=== PATIENT | female | born 2005 | race Caucasian/White ===

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

== ENCOUNTER 2025-04-17 23:36 | Observation (INO) ==
[2025-04-18] MEDS: SODIUM CHLORIDE 0.9% 1,000 ML IV ONE ×2 (01:00→01:18)
[2025-04-18 01:05] LABS: Hematocrit (blood only) 35.8 % (37.0-47.0); Hemoglobin 11.7 g/dl (12.0-16.0); Mean Corpuscular Hemoglobin 27.5 pg (25.0-34.0); Mean Corpuscular Volume 84.2 fL (80.0-100.0); Platelet Count 176 K/uL (130-400); RDW Standard Deviation 40.4 fL (36.4-46.3); Red Blood Count 4.25 M/uL (4.20-5.40); White Blood Count 3.52 K/ul (4.8-10.8)
[2025-04-18] MEDS: SODIUM CHLORIDE 0.9% 250 ML IV ONE (01:18)
[2025-04-18] MEDS: ACETAMINOPHEN 1,000 MG/100 ML VIAL IV STA (01:18)
[2025-04-18 01:23] LABS: Alanine Aminotransferase 13.0 U/L (7-52); Albumin Globulin Ratio 1.3 (0.9-2); Albumin Level 4.6 gm/dl (3.4-5.0); Alkaline Phosphatase 101.0 U/L (34-104); Anion Gap 9.0 (3-11); Bilirubin,Total 0.6 mg/dl (0.2-1.0); Blood Urea Nitrogen 12.0 mg/dl (6-23); Calcium 9.2 mg/dl (8.6-10.3); Carbon Dioxide 23.0 mmol/L (21-32); Chloride 103.0 mmol/L (98-107); Creatinine Clr Calc Pharmacy 124.0 ml/min; Globulin 3.5 gm/dl (2.5-4.0); Glucose 85.0 mg/dl (70-99(Fasting)); Lipase 14.0 U/L (11-82); Potassium 3.2 mmol/L (3.5-5.1); Sodium 135.0 mmol/L (136-145); Total Protein 8.1 gm/dl (6.0-8.3)
[2025-04-18] MEDS: KETOROLAC 30 MG/ML VIAL IV STA (01:44)
[2025-04-18 01:45] LABS: ALC (manual) 2.36 K/uL (1.2-3.4); ANC (manual) 1.02 K/uL (1.4-6.5); RBC Morphology Unremarkable; Reactive Lymphocytes # (manual) 0.60 K/uL; Reactive Lymphocytes % (manual) 17 %
[2025-04-18] MEDS: cefTRIAXone SODIUM 2,000 MG/50 ML BAG IV ONE (01:53)
[2025-04-18 02:04] LABS: Appearance Urine Cloudy (Clear); Bacteria Urine Automated 3+ (None Seen); Cast Urine Automated 0-2 /lpf (0-2); Glucose Urine UA Negative (Negative); WBC Urine Automated >50 /hpf (0-5)
--- NOTE | 2025-04-18 02:13 | XRay Report ---
EXAM: XR chest 1V portable CLINICAL HISTORY: Fever TECHNIQUE: A radiograph of the chest was acquired. COMPARISON: None. FINDINGS: The lungs are clear and well expanded, with no pulmonary infiltrate or pleural effusion. The cardiomediastinal silhouette is within normal limits. No acute osseous abnormality is present. IMPRESSION: 1. No acute cardiopulmonary disease. Electronically signed by Christiano Pate 04-18-2025 02:12 AM
[2025-04-18 02:35] LABS: Chlamydia pneumoniae PCR Not Detected (NotDetected); Coronavirus 229E PCR Not Detected (NotDetected); Coronavirus CoV-2 (COVID19)PCR Not Detected (NotDetected); Coronavirus HKU1 PCR Not Detected (NotDetected); Coronavirus NL63 PCR Not Detected (NotDetected); Coronavirus OC43PCR Not Detected (NotDetected); Human Metapneumovirus PCR Not Detected (NotDetected); Parainfluenza Virus 1 PCR Not Detected (NotDetected); Parainfluenza Virus 2 PCR Not Detected (NotDetected); Parainfluenza Virus 3 PCR Not Detected (NotDetected); Parainfluenza Virus 4 PCR Not Detected (NotDetected); Respiratory Syncytial VirusPCR Not Detected (NotDetected); Rhinovirus/Enterovirus PCR Not Detected (NotDetected)
--- NOTE | 2025-04-18 02:51 | Emergency Department Note ---
Impression & Plan Sepsis, Hyponatremia, Hypokalemia, Female genital lesion, High risk heterosexual behavior ED Provider Note CHIEF COMPLAINT: Perineal lesions HISTORY OF PRESENT ILLNESS: This 20-year-old female patient presents to the emergency department via private vehicle for evaluation of lesions on her perineum and labia. The patient states that she was having sex about 2 weeks ago. She thought her posterior vaginal introitus tore during sex. She states she was having some irritation and pain in that area. About a week ago, she had sex again and developed another tearing sensation. Since that time, she has been using witch rj and Dermoplast and has since developed lesions on the labia which are sort of ulcerated. She states she is having significant pain in this area. She has had cold symptoms for the past few days with congestion and runny nose. She was unaware of a fever but was having chills. She states there is discharge coming from the lesions. She denies any abdominal pain or back pain. Pain with urination except externally over the lesions. No vaginal bleeding. History provided by: Patient REVIEW OF SYSTEMS: A 10 system review of systems was performed with positives and pertinent negatives listed in the history of present illness. All other systems were reviewed and are negative. ALLERGIES: NKDA PHYSICAL EXAM: VITALS: Vitals are noted on the nurse's note and reviewed by myself. Patient was found to be tachycardic and febrile on arrival. GENERAL: This is a 40-year-old female, in no acute distress, nondiaphoretic, well-developed well-nourished. SKIN: The skin was without rashes, erythema, edema, or bruising. There is no tenting of the skin. Capillary refill less than 2 seconds. HEAD: Normocephalic atraumatic. EARS: External auditory canals clear, tympanic membranes pearly baeza without erythema or effusion bilaterally. No hemotympanum. Negative rogres sign EYES: Pupils equal round and reactive to light and accommodation. Conjunctivae without injection, sclerae without icterus. Extraocular movements intact. NOSE: Patent, turbinates without inflammation or discharge. No sinus tenderness. MOUTH: Mucous membranes moist. Tonsils are not enlarged. Pharynx without erythema or exudate. Uvula midline. Airway patent. Tongue does not deviate. NECK: Supple without nuchal rigidity. No lymphadenopathy. Cervical spine is nontender. No JVD. HEART: Regular rate and rhythm without murmurs gallops or rubs. LUNGS: Clear to auscultation bilaterally without wheezes, rales or rhonchi. No retractions or accessory muscle use. ABDOMEN: Positive bowel sounds x 4. Soft, nontender, without masses or organomegaly. Lindsay sign negative. No guarding or rebound tenderness. : Exam completed with Sonal Lopez RN at bedside as bar staff. External examination shows vesicular lesions on erythematous base on the labia majora and perineum. There is no active discharge from the lesions. Lesions are extremely tender to palpation. Pt. having difficulty tolerating external examination. Did elect to hold off on on internal exam at this time. MUSCULOSKELETAL: No muscle atrophy, erythema, or edema noted. Full range of motion without joint tenderness in all extremities. No tenderness to palpation. Normal gait. Strength 5/5 throughout. NEURO: Patient was alert and oriented to person place and time. No focal neurological deficits. An order was placed for continuous residential monitor. The monitor showed a sinus tachycardia at a ventricular rate of 141 bpm, per my interpretation. Imaging as interpreted by myself and the radiologist revealed negative chest x- ray, CT abd/pelvis with enlarged inguinal lymph nodes, splenomegaly, hepatomegaly with hepatic steatosis. No perineum abnormality. Radiologist interpretation as above. I agree with the radiologist's findings as based upon my independent interpretation. EMERGENCY DEPARTMENT COURSE: The patient was evaluated as above. The patient presents to the emergency department due to perineal lesions. Upon arrival, she was tachycardic and febrile. She has had some URI symptoms and has been sick with intermittent febrile illness for the greater part of the past month. The patient became concerned due to lesions in her perineum and labia that she may have an abscess or infection, particularly in the setting of a fever. Patient did believe the symptoms began with injury during sex. She also questioned adverse reaction to Dermoplast or witch rj she was using for irritation. Pelvic examination completed as above. External exam concerning for vesicular lesions on erythematous base. Pt. is extremely tender in the genitalia in the area of the labia and perineum. Cultures were obtained. Given the patient's fever and tachycardia as well as her examination, would elect to perform further evaluation. IV access was obtained, labs were drawn. Pt. hydrated with 2,250 cc IV fluids per actual body weight at 30cc/kg due to febrile illness and concern for sepsis. Chest x-ray completed and reviewed by myself and radiologist. This was negative for acute abnormality. Labs reviewed. Per my interpretation, no leukocytosis. There is a leukopenia of 3.52. Anemia with hemoglobin 11.7 and hematocrit of 35.8. No thrombocytopenia. Renal, hepatic function and electrolytes without significant abnormality. Lactic acid 1.3. Procalcitonin 0.11. Lipase 14. Urinalysis with blood, leukocyte esterase, white blood cells, and 3+ bacteria. Urine test is negative. I do suspect urinalysis this is likely contaminated given the patient's external genitalia irritation and difficulty in cleansing the area prior to providing a clean-catch sample. Respiratory BioFire testing was completed and was negative. I discussed the findings with the patient at bedside. She notes that she got a tattoo about 2 years ago and was concerned for possible HIV exposure, as the tattoo got infected and had red bumps in the area. She states she never underwent testing and is requesting that testing be completed at this time. This was performed and was negative. Given the patient's persistent fever and tachycardia despite IV fluids, Tylenol, Toradol, I did recommend further evaluation with CT of the abdomen/pelvis. This was completed and reviewed by myself radiologist as noted. Did show enlarged inguinal lymph nodes, splenomegaly, and hepatomegaly with hepatic steatosis. No abnormal findings in the perineum. At this time, the patient remains persistently tachycardic at 115. I am unclear to the source. I am concerned that the genital abnormality is HSV the, but cultures are pending. Blood cultures are pending and I do recommend escalation of care/admission while trending cultures and initiating antibiotics. The patient has been medicated with IV Rocephin and valacyclovir. The patient was agreeable with this plan. I discussed the case with Dr. Melendez, [facility] hospitalist physician. She did agree to evaluate the patient for admission. Please see hospitalist dictation regarding ongoing management and final disposition of this patient. Case was discussed with the attending physician. This visit is during a period of high volume and high acuity in the emergency department. I attest that I have personally reviewed the patient medication list. I attest that I have reviewed the patient's blood pressure and it was found to be mildly elevated. Suspect this to be situational in nature. GCS: 15 In the evaluation and treatment of this patient the following differential diagnoses were entertained: Viral syndrome, otitis, pharyngitis, pneumonia, influenza, meningitis, urinary tract infection, sepsis, bacteremia, STI, PID, abscess, cervicitis, Miguel Angel's gangrene, HIV, as well as other pathologies. The chart was completed utilizing [email or web address] Speech voice recognition software. Grammatical errors, random word insertions, pronoun errors, and incomplete sentences are an occasional consequence of this system due to software limitations, ambient noise, and hardware issues. Any formal questions or concerns about the content, text, or information contained within the body of this dictation should be directly addressed to the provider for clarification. Past Med/Surg History Problem List High risk heterosexual behavior (Acute) Female genital lesion (Acute) Anemia Hypokalemia (Acute) Hyponatremia (Acute) Hepatomegaly Sepsis (Acute) Frequent nosebleeds Abnormal uterine bleeding (AUB) Encounter for pre-operative examination Medical History Panic attacks Acid reflux Weight gain Tinea versicolor Tear of medial meniscus of left knee Lactose intolerance Anxiety Acne vulgaris Panic attacks SITUATION INDUCED GERD (gastroesophageal reflux disease) Torn meniscus LEFT Surgical History History of tonsillectomy Family History Grandmother Family history of diabetes mellitus Social History Smoking Status: Never smoker Hx Alcohol Use: No Hx Substance Use: No Preferred Language: Danish Communication Ability: Effective Beliefs That Will Affect Care: None Feels Safe at Home: Yes Allergies Allergies Allergy/AdvReac Type Severity Reaction Status Date / Time adhesive tape Allergy Unknown Unknown Verified 04/18/25 05:33 Home Meds Home Medications Medication Instructions Recorded Confirmed melatonin 3 mg capsule 3 mg PO HS PRN Sleep 11/20/22 04/17/25 Results & Data (ED) Vital Signs Vital Signs - 24 hr 04/17/25 23:47 04/18/25 00:04 04/18/25 00:06 Temperature 38.5 C H Temperature Source Temporal Artery Scan Pulse Rate 142 H 145 H 135 H Pulse Rate [Apical] Pulse Rate from SpO2 Sensor Pulse Rhythm Regular Pulse Rhythm [Apical] Pulse Strength Normal Respiratory Rate 20 20 Respiratory Effort / Characteristics Non-Labored Spontaneous Respiratory Depth Normal Respiratory Pattern Regular Blood Pressure 137/76 122/85 Blood Pressure [Left Arm] Blood Pressure Mean 96 97 Blood Pressure Mean [Left Arm] Blood Pressure Position Sitting Pulse Oximetry 99 99 Oxygen Delivery Method Room Air Room Air Sepsis Recent Fever Within 48 Hours Yes Sepsis New/Unexplained Change in Mental Status No Sepsis Action Taken by Nursing No Action Required 04/18/25 01:21 04/18/25 01:58 04/18/25 02:00 Temperature Temperature Source Pulse Rate 131 H 121 H Pulse Rate [Apical] 120 H Pulse Rate from SpO2 Sensor 122 H Pulse Rhythm Pulse Rhythm [Apical] Pulse Strength Respiratory Rate 13 14 17 Respiratory Effort / Characteristics Non-Labored Spontaneous Respiratory Depth Normal Respiratory Pattern Regular Blood Pressure 125/87 Blood Pressure [Left Arm] 125/87 Blood Pressure Mean 93 Blood Pressure Mean [Left Arm] 99 Blood Pressure Position Pulse Oximetry 100 98 99 Oxygen Delivery Method Room Air Room Air Room Air Sepsis Recent Fever Within 48 Hours Sepsis New/Unexplained Change in Mental Status Sepsis Action Taken by Nursing 04/18/25 02:12 04/18/25 03:00 04/18/25 03:18 Temperature 37.3 C Temperature Source Oral Pulse Rate 119 H 126 H Pulse Rate [Apical] Pulse Rate from SpO2 Sensor 193 H 127 H Pulse Rhythm Pulse Rhythm [Apical] Pulse Strength Respiratory Rate 12 20 Respiratory Effort / Characteristics Respiratory Depth Respiratory Pattern Blood Pressure Blood Pressure [Left Arm] Blood Pressure Mean Blood Pressure Mean [Left Arm] Blood Pressure Position Pulse Oximetry 98 99 Oxygen Delivery Method Room Air Room Air Sepsis Recent Fever Within 48 Hours Sepsis New/Unexplained Change in Mental Status Sepsis Action Taken by Nursing 04/18/25 03:56 04/18/25 04:00 04/18/25 04:06 Temperature Temperature Source Pulse Rate 112 H 110 H Pulse Rate [Apical] 115 H Pulse Rate from SpO2 Sensor 110 H Pulse Rhythm Pulse Rhythm [Apical] Regular Pulse Strength Respiratory Rate 16 17 Respiratory Effort / Characteristics Non-Labored Spontaneous Respiratory Depth Normal Respiratory Pattern Regular Blood Pressure 111/88 Blood Pressure [Left Arm] 111/88 Blood Pressure Mean 95 Blood Pressure Mean [Left Arm] 95 Blood Pressure Position Pulse Oximetry 100 99 Oxygen Delivery Method Room Air Room Air Sepsis Recent Fever Within 48 Hours Sepsis New/Unexplained Change in Mental Status Sepsis Action Taken by Nursing 04/18/25 05:00 04/18/25 06:00 04/18/25 06:10 Temperature 39.6 C H Temperature Source Oral Pulse Rate Pulse Rate [Apical] 115 H 132 H Pulse Rate from SpO2 Sensor Pulse Rhythm Pulse Rhythm [Apical] Regular Regular Pulse Strength Respiratory Rate 16 15 Respiratory Effort / Characteristics Non-Labored Spontaneous Non-Labored Spontaneous Respiratory Depth Normal Normal Respiratory Pattern Regular Regular Blood Pressure Blood Pressure [Left Arm] 127/86 109/63 Blood Pressure Mean Blood Pressure Mean [Left Arm] 99 78 Blood Pressure Position Pulse Oximetry 99 98 Oxygen Delivery Method Room Air Room Air Sepsis Recent Fever Within 48 Hours Sepsis New/Unexplained Change in Mental Status Sepsis Action Taken by Nursing Laboratory Data 04/18/25 00:45 04/18/25 00:45 Lab Results 04/18/25 04/18/25 04/18/25 Range/Units 00:45 01:35 01:48 WBC 3.52 L (4.8-10.8) K/ul RBC 4.25 (4.20-5.40) M/uL Hgb 11.7 L (12.0-16.0) g/dl Hct 35.8 L (37.0-47.0) % MCV 84.2 (80.0-100.0) fL MCH 27.5 (25.0-34.0) pg MCHC 32.7 (32.0-36.0) g/dL RDW Std Deviation 40.4 (36.4-46.3) fL RDW Coeff of James 13.2 (11.5-14.5) % Plt Count 176 (130-400) K/uL MPV 10.3 (9.4-12.4) fL Neutrophils % (Manual) 29 % Lymphocytes % (Manual) 50 % Reactive Lymphs % (Man) 17 % Monocytes % (Manual) 4 % Neutrophils # (Manual) 1.02 L (1.40-6.50) K/uL Total Absolute Neuts 1.02 L (1.4-6.5) K/uL Lymphocytes # (Manual) 1.76 (1.2-3.4) K/uL Reactive Lymphs # 0.60 K/uL Total Abs Lymphocytes 2.36 (1.2-3.4) K/uL Monocytes # (Manual) 0.14 (0.11-0.59) K/uL RBC Morphology Unremarkable Sodium 135 L (136-145) mmol/L Potassium 3.2 L (3.5-5.1) mmol/L Chloride 103 (98-107) mmol/L Carbon Dioxide 23 (21-32) mmol/L Anion Gap 9 (3-11) BUN 12 (6-23) mg/dl Creatinine 0.75 (0.6-1.2) mg/dl Est Cr Clr Drug Dosing 124.0 ml/min eGFR 116.09 BUN/Creatinine Ratio 16.0 (10-20) Glucose 85 (70-99(Fasting)) mg/dl Lactate 1.3 (0.4-2.0) mmol/L Calcium 9.2 (8.6-10.3) mg/dl Total Bilirubin 0.6 (0.2-1.0) mg/dl AST 24 (13-39) U/L ALT 13 (7-52) U/L Alkaline Phosphatase 101 (34-104) U/L Total Protein 8.1 (6.0-8.3) gm/dl Albumin 4.6 (3.4-5.0) gm/dl Globulin 3.5 (2.5-4.0) gm/dl Albumin/Globulin Ratio 1.3 (0.9-2) Lipase 14 (11-82) U/L Procalcitonin 0.11 (0-0.5) ng/ml Urine Color Yellow Urine Appearance Cloudy A (Clear) Urine pH 6.0 (4.5-7.5) Ur Specific [place] 1.011 (1.000-1.030) Urine Protein 3+ H (Negative) Urine Glucose (UA) Negative (Negative) Urine Ketones Negative (Negative) Urine Blood 2+ H (Negative) Urine Nitrite Negative (Negative) Urine Bilirubin Negative (Negative) Urine Urobilinogen Negative (Negative) Ur Leukocyte Esterase 3+ H (Negative) Urine WBC (Auto) >50 H (0-5) /hpf Urine RBC (Auto) 3-5 H (0-2) /hpf U Hyaline Cast (Auto) 0-2 (0-2) /lpf U Epithel Cells (Auto) 6-10 H (0-2) /hpf Urine Bacteria (Auto) 3+ H (None Seen) Urine Test Negative (Negative) Urine Comment Adenovirus (PCR) Not Detected (NotDetected) B. pertussis DNA (PCR) Not Detected (NotDetected) B.parapertussis DNA PCR Not Detected (NotDetected) C. pneumoniae DNA (PCR) Not Detected (NotDetected) Coronavirus OC43 (PCR) Not Detected (NotDetected) Coronavirus HKU1 (PCR) Not Detected (NotDetected) Coronavirus 229E (PCR) Not Detected (NotDetected) SARS-CoV-2 (PCR) Not Detected (NotDetected) Coronavirus NL63 (PCR) Not Detected (NotDetected) HIV 1&2 Ab/P24 Ag 4thGn (Negative) Human Metapneumovir PCR Not Detected (NotDetected) Influenza Type A (PCR) Not Detected (NotDetected) Influenza Type B (PCR) Not Detected (NotDetected) M. pneumoniae (PCR) Not Detected (NotDetected) Parainfluenza 1 (PCR) Not Detected (NotDetected) Parainfluenza 2 (PCR) Not Detected (NotDetected) Parainfluenza 3 (PCR) Not Detected (NotDetected) Parainfluenza 4 (PCR) Not Detected (NotDetected) RSV (PCR) Not Detected (NotDetected) Entero/Rhino (PCR) Not Detected (NotDetected) 04/18/25 Range/Units 03:08 WBC (4.8-10.8) K/ul RBC (4.20-5.40) M/uL Hgb (12.0-16.0) g/dl Hct (37.0-47.0) % MCV (80.0-100.0) fL MCH (25.0-34.0) pg MCHC (32.0-36.0) g/dL RDW Std Deviation (36.4-46.3) fL RDW Coeff of James (11.5-14.5) % Plt Count (130-400) K/uL MPV (9.4-12.4) fL Neutrophils % (Manual) % Lymphocytes % (Manual) % Reactive Lymphs % (Man) % Monocytes % (Manual) % Neutrophils # (Manual) (1.40-6.50) K/uL Total Absolute Neuts (1.4-6.5) K/uL Lymphocytes # (Manual) (1.2-3.4) K/uL Reactive Lymphs # K/uL Total Abs Lymphocytes (1.2-3.4) K/uL Monocytes # (Manual) (0.11-0.59) K/uL RBC Morphology Sodium (136-145) mmol/L Potassium (3.5-5.1) mmol/L Chloride (98-107) mmol/L Carbon Dioxide (21-32) mmol/L Anion Gap (3-11) BUN (6-23) mg/dl Creatinine (0.6-1.2) mg/dl Est Cr Clr Drug Dosing ml/min eGFR BUN/Creatinine Ratio (10-20) Glucose (70-99(Fasting)) mg/dl Lactate (0.4-2.0) mmol/L Calcium (8.6-10.3) mg/dl Total Bilirubin (0.2-1.0) mg/dl AST (13-39) U/L ALT (7-52) U/L Alkaline Phosphatase (34-104) U/L Total Protein (6.0-8.3) gm/dl Albumin (3.4-5.0) gm/dl Globulin (2.5-4.0) gm/dl Albumin/Globulin Ratio (0.9-2) Lipase (11-82) U/L Procalcitonin (0-0.5) ng/ml Urine Color Urine Appearance (Clear) Urine pH (4.5-7.5) Ur Specific [place] (1.000-1.030) Urine Protein (Negative) Urine Glucose (UA) (Negative) Urine Ketones (Negative) Urine Blood (Negative) Urine Nitrite (Negative) Urine Bilirubin (Negative) Urine Urobilinogen (Negative) Ur Leukocyte Esterase (Negative) Urine WBC (Auto) (0-5) /hpf Urine RBC (Auto) (0-2) /hpf U Hyaline Cast (Auto) (0-2) /lpf U Epithel Cells (Auto) (0-2) /hpf Urine Bacteria (Auto) (None Seen) Urine Test (Negative) Urine Comment Adenovirus (PCR) (NotDetected) B. pertussis DNA (PCR) (NotDetected) B.parapertussis DNA PCR (NotDetected) C. pneumoniae DNA (PCR) (NotDetected) Coronavirus OC43 (PCR) (NotDetected) Coronavirus HKU1 (PCR) (NotDetected) Coronavirus 229E (PCR) (NotDetected) SARS-CoV-2 (PCR) (NotDetected) Coronavirus NL63 (PCR) (NotDetected) HIV 1&2 Ab/P24 Ag 4thGn Negative (Negative) Human Metapneumovir PCR (NotDetected) Influenza Type A (PCR) (NotDetected) Influenza Type B (PCR) (NotDetected) M. pneumoniae (PCR) (NotDetected) Parainfluenza 1 (PCR) (NotDetected) Parainfluenza 2 (PCR) (NotDetected) Parainfluenza 3 (PCR) (NotDetected) Parainfluenza 4 (PCR) (NotDetected) RSV (PCR) (NotDetected) Entero/Rhino (PCR) (NotDetected) Administered Medications Acetaminophen (Acetaminophen 500 Mg Tab) 1,000 mg PO Q8H PRN PRN Reason: Pain & Pre PT Stop: 05/18/25 05:22 Last Admin: 04/18/25 06:12 Dose: 1,000 mg Discontinued Medications Acetaminophen (Ofirmev) 1,000 mg in 100 mls @ 400 mls/hr IV NOW STA Stop: 04/18/25 00:59 Last Admin: 04/18/25 01:18 Dose: Not Given Documented By: MARCIN Sodium Chloride (Nss) 1,000 mls @ 999 mls/hr IV .Q1H1M ONE Stop: 04/18/25 01:45 Last Infusion: 04/18/25 01:30 Dose: Infused Documented By: Admin: 04/18/25 01:00 Dose: 999 mls/hr Documented By: MARCIN Ceftriaxone Sodium (Rocephin) 2,000 mg in 50 mls @ 100 mls/hr IV NOW ONE; Protocol Stop: 04/18/25 01:14 Last Infusion: 04/18/25 02:30 Dose: Infused Documented By: Admin: 04/18/25 01:53 Dose: 100 mls/hr Documented By: MARCIN Sodium Chloride (Nss) 1,000 mls @ 999 mls/hr IV .Q1H1M ONE Stop: 04/18/25 01:47 Last Infusion: 04/18/25 02:30 Dose: Infused Documented By: Admin: 04/18/25 01:18 Dose: 999 mls/hr Documented By: MARCIN Sodium Chloride (Nss) 250 mls @ 999 mls/hr IV .Q16M ONE Stop: 04/18/25 01:02 Last Infusion: 04/18/25 01:50 Dose: Infused Documented By: Admin: 04/18/25 01:18 Dose: 999 mls/hr Documented By: MARCIN Ioversol (Optiray 320 100ml) 93 ml IV ONCE ONE Stop: 04/18/25 03:33 Last Admin: 04/18/25 03:32 Dose: 93 ml Documented By: NELIA Ketorolac Tromethamine (Ketorolac 30 Mg/Ml Vial) 30 mg IV NOW STA Stop: 04/18/25 01:18 Last Admin: 04/18/25 01:44 Dose: 30 mg Documented By: MARCIN Potassium Chloride (Potassium Chloride 20 Meq/15 Ml Udc) 20 meq PO NOW STA Stop: 04/18/25 05:25 Last Admin: 04/18/25 06:09 Dose: 20 meq Valacyclovir HCl (Valacyclovir Hcl 500 Mg Tablet) 1,000 mg PO NOW ONE Stop: 04/18/25 04:23 Last Admin: 04/18/25 05:05 Dose: 1,000 mg Documented By: MARCIN Imaging Data Radiologist's Impression: Chest X-Ray 04/18/25 00:45 EXAM: XR chest 1V portable CLINICAL HISTORY: Fever TECHNIQUE: A radiograph of the chest was acquired. COMPARISON: None. FINDINGS: The lungs are clear and well expanded, with no pulmonary infiltrate or pleural effusion. The cardiomediastinal silhouette is within normal limits. No acute osseous abnormality is present. IMPRESSION: 1. No acute cardiopulmonary disease. Electronically signed by Christiano Pate 04-18-2025 02:12 AM Abdomen/Pelvis CT 04/18/25 02:52 EXAM: CT abd pelvis IV con only CLINICAL HISTORY: pelvic pain, perineum pain/lesion TECHNIQUE: Contiguous axial images were obtained from the level of the diaphragm to the pubic symphysis with intravenous contrast. Coronal and sagittal reconstructions were also performed, as indicated, to increase the sensitivity for detecting clinically relevant pathology. If IV contrast material had not been administered, the likelihood of detecting abnormalities relevant to the patient's condition would have been substantially decreased. The CT scan was performed according to ALARA (as low as reasonably achievable) principles. COMPARISON: None. FINDINGS: The visualized lung bases are clear. The liver is enlarged in size and demonstrates reduced attenuation. No focal liver lesions are seen. There is no intrahepatic or extrahepatic biliary ductal dilatation. The hepatic vasculature is patent. The gallbladder is present. The spleen is enlarged, measuring about 16 cm. The pancreas and adrenal glands are unremarkable. The kidneys are normal in size and attenuation. There is no hydronephrosis or perinephric fat stranding. No renal calculi or renal masses are identified. The ureters are normal in caliber and no ureteral calculi are seen. The bladder is normal in contour. Pelvic viscera are unremarkable. An IUCD is seen in situ. No focal or diffuse bowel wall thickening or evidence of bowel obstruction is identified. No imaging evidence of appendicitis. The abdominal and pelvic vasculature is patent. Enlarged lymph nodes seen in bilateral inguinal region. No fluid collections are seen. No aggressive appearing osseous lesions are identified. IMPRESSION: Hepatomegaly with hepatic steatosis. Splenomegaly. No acute intra-abdominal abnormality is seen. Enlarged lymph nodes seen in bilateral inguinal region. No abnormality is seen in the perineum. Electronically signed by Christiano Pate 04-18-2025 04:13 AM Discharge Plan Visit Data Chief Complaint: Infection, Wound Stated Complaint: WOUND INFECTION ED Provider: Jesse Mcnally ED Midlevel Provider: Sara Lew Discharge Problem: Sepsis, Hyponatremia, Hypokalemia, Female genital lesion, High risk heterosexual behavior Patient Disposition: Admitted As Inpatient Condition: Good Forms Stand Alone Forms: My [employer] Prescriptions Prescriptions: No Action melatonin 3 mg capsule 3 mg PO HS PRN (Reason: Sleep) Referrals Referrals: Lori Ramirez PA-C [Primary Care Provider] -
[2025-04-18] MEDS: OPTIRAY 320 100ml IV ONE (03:32)
--- NOTE | 2025-04-18 04:13 | CT Scan Report ---
EXAM: CT abd pelvis IV con only CLINICAL HISTORY: pelvic pain, perineum pain/lesion TECHNIQUE: Contiguous axial images were obtained from the level of the diaphragm to the pubic symphysis with intravenous contrast. Coronal and sagittal reconstructions were also performed, as indicated, to increase the sensitivity for detecting clinically relevant pathology. If IV contrast material had not been administered, the likelihood of detecting abnormalities relevant to the patient's condition would have been substantially decreased. The CT scan was performed according to ALARA (as low as reasonably achievable) principles. COMPARISON: None. FINDINGS: The visualized lung bases are clear. The liver is enlarged in size and demonstrates reduced attenuation. No focal liver lesions are seen. There is no intrahepatic or extrahepatic biliary ductal dilatation. The hepatic vasculature is patent. The gallbladder is present. The spleen is enlarged, measuring about 16 cm. The pancreas and adrenal glands are unremarkable. The kidneys are normal in size and attenuation. There is no hydronephrosis or perinephric fat stranding. No renal calculi or renal masses are identified. The ureters are normal in caliber and no ureteral calculi are seen. The bladder is normal in contour. Pelvic viscera are unremarkable. An IUCD is seen in situ. No focal or diffuse bowel wall thickening or evidence of bowel obstruction is identified. No imaging evidence of appendicitis. The abdominal and pelvic vasculature is patent. Enlarged lymph nodes seen in bilateral inguinal region. No fluid collections are seen. No aggressive appearing osseous lesions are identified. IMPRESSION: Hepatomegaly with hepatic steatosis. Splenomegaly. No acute intra-abdominal abnormality is seen. Enlarged lymph nodes seen in bilateral inguinal region. No abnormality is seen in the perineum. Electronically signed by Christiano Pate 04-18-2025 04:13 AM
--- NOTE | 2025-04-18 05:18 | History & Physical Report ---
Date of Service April 18, 2025 Assessment & Plan (1) Sepsis: (2) Hepatomegaly: (3) Hyponatremia: (4) Hypokalemia: (5) Anemia: Plan 20-year-old female PMHx AUB who presents for concerns of worsening wound on labia. Evaluation concerning for persistent tachycardia in setting of following laboratory findings: leukopenia (3.52), H/H 11.7/35.8, Na 135, K 3.2. CTAP reveals hepatomegaly and splenomegaly, no additional findings. She did have a fever and present to the ED tachycardic, therefore meeting SIRS criteria. Admission for sepsis, 2/2 gynecological infection, with persistent tachycardia and minimal electrolyte abnormalities. #Sepsis/?HSV In setting of suspected labia infection, with tachycardia persisting but fever resolved after administration of acetaminophen. Rash had developed following initial wound, concerns for herpes. 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 Pt remains feverish and tachycardic during admitting evaluation. To be admitted for remaining workup. ? initial shingles outbreak vs additional etiology. - CBC leukopenia 3.52; lactate and procal WNL - CBC am - EKG pending - UA suspicious infection vs contamination; pending cx - BioFire negative - Vaginal swab pending - IVF LR @ 100 mL/hr - Zofran prn N/V - Acetaminophen prn fever/pain, alternate with ketorolac if severe pain - HS cx pending - Valacyclovir po - continue for now - Ceftriaxone IV - continue - Consider gyne consult, pending clinical improvement/course #Hepatomegaly As identified on CTAP, without abdominal pain. - CBC with slight anemia; CMP with LFTs WNL - LFTs am - CTAP hepatosplenomegaly - [place] pending #Hyponatremia Mild, without glucose abnormalities. - Na 135 - BMP am - IVF as above #Hypokalemia Without acute symptoms. - K 3.2, pending Mg - BMP am - EKG pending - KCl 20 mEq po #Anemia Reported history of AUB, nosebleeds. No current known bleeding, to include vaginal bleeding. Beginning of the year with "blood in stool", cannot attest to any recently, - H/H 11.7/35.8 on admission - Pending iron panel, ferritin, vitamin B12, folate, haptoglobin, LDH, reticulocytes - CTAP hepatosplenomegaly - Trend CBC Dispo: Obs, med/tele - persistent tachycardia VTE Prophylaxis: SCDs This document was dictated utilizing [employer]. Please excuse any grammatical errors that may be secondary to use of this software. Admission and Anticipated Discharge Date Admission Date: 04/18/2025 History of Present Illness Chief Complaint: Infection Primary Care Provider: Lori Ramirez PA-C 20-year-old female PMHx AUB who presents for concerns of worsening wound in perineal area. Reports that she noticed a wound between her vagina and anus 3 days VB NET PROGRAMMER, which developed after sexual intercourse. She states that the area had become irritated and painful, so 2 days VB NET PROGRAMMER she started to put witch rj on the area but this did not provide any relief. She had developed a fever of 102 degrees Fahrenheit 2 days VB NET PROGRAMMER, and has had the chills since. She does have a ring that tracks her temperature and she states the most current reading being 103 degrees Fahrenheit. She is having some vaginal discharge but she is unclear if this is coming from the wounded area or vagina itself. She explains that the wound started as almost an ulceration type lesion, then worsening with the additional of Witch Rj. Some numbing sensation at the area, she believes secondary to the witch rj. No bladder incontinence. She has been utilizing Tylenol for her pain and fever, which has provided minimal relief. She admits to LUTS, specifically dysuria. Also reports prior exposure to rhinovirus ~ 1 month VB NET PROGRAMMER, in which she had developed generalized URI symptoms and fever at that time. 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 She recalls a prior rash developing on her hip following a tattoo in the past, but aside from this no known shingles. Denies cold sores. She denies active bleeding, reports no menses as she has an IUD, and the most recent episode of bleeding she recalls was "the beginning of the year" where she had some blood in her stool but has not since that time. She is tachycardic which is abnormal for her, also reports a "hiccuping/catching breath" sensation that was prominent the night VB NET PROGRAMMER but no chest pain, SOB, or palpitations. Denies abdominal pain. No known history of mono. She was fully vaccinated with childhood vaccines. One sexual partner who she states "has tested negative for anything." Denies N/V/D/C, numbness/tingling elsewhere, weakness, current URI symptoms, weakness, syncope, or falls. ED evaluation reveals CBC with leukopenia at 3.52, H/H 11.7/35.8; CMP Na 135, K 3.2; lactate 1.3; procal 0.11; UA with LE/WBC/epith cells/bacteria; negative; vaginal swab pending; BioFire negative; CXR no acute findings; CTAP hepatomegaly with steatosis, splenomegaly, no acute findings, enlarged lymph nodes in bilateral inguinal region, no abnormalities in perineum; EKG [].; Provided with 2.25L NSS, ketorolac 30mg IV, valacyclovir 1g po, ceftriaxone 2g IV, and acetaminophen 1g IV in ED. Please see Dr. Melendez's attestation for adjustments/additions to treatment plan. Allergies Allergy/AdvReac Type Severity Reaction Status Date / Time adhesive tape Allergy Unknown Unknown Verified 04/18/25 05:33 Home Medications Medication Instructions Recorded Confirmed Type melatonin 3 mg capsule 3 mg PO HS PRN Sleep 11/20/22 04/17/25 History Past Med/Surg History Problem List High risk heterosexual behavior (Acute) Female genital lesion (Acute) Anemia Hypokalemia (Acute) Hyponatremia (Acute) Hepatomegaly Sepsis (Acute) Frequent nosebleeds Abnormal uterine bleeding (AUB) Encounter for pre-operative examination Medical History Panic attacks Acid reflux Weight gain Tinea versicolor Tear of medial meniscus of left knee Lactose intolerance Anxiety Acne vulgaris Panic attacks SITUATION INDUCED GERD (gastroesophageal reflux disease) Torn meniscus LEFT Surgical History History of tonsillectomy Family History Grandmother Family history of diabetes mellitus Social History Smoking Status: Never smoker Second Hand Exposure: No; Do You Dip or Chew Tobacco: No; Tobacco Cessation Education Requested by Patient: No Hx Alcohol Use: No Hx Substance Use: No Preferred Language: Com[place]an Communication Ability: Effective Head Setter Required: No Beliefs That Will Affect Care: None Current Living Situation: Parent Other Information That Helps Us Care for You: No Feels Safe at Home: Yes Safety Concerns: Feels Safe At This Time Assistive Devices: None Review of Systems Review of Systems: All systems reviewed & are unremarkable except as noted in Subjective Physical Exam Physical Exam: General: No acute distress Skin: Hot, dry. No rashes noted Head: Normocephalic, atraumatic Eyes: PERRL, conjunctivae clear, sclera non-icteric ENT: External ear and ear canal without swelling; nose atraumatic; good dentition, tongue normal appearance, pharynx normal; tongue with vesicular type lesion posterior L side, no other findings Neck: Supple, no LAD Cardio: tachycardic, regular rhythm, no M/G/R, S1 and S2 normal Resp: No respiratory distress, Lungs CTA in all lobes bilaterally, no wheezes, rales, or rhonchi Abdomen: Soft, symmetric, nontender; No masses or hepatosplenomegaly palpable; Bowel sounds normoactive Pelvic: Erythematous base throughout, with unroofed-like lesions along labia majora and near anus, not vesicular in nature; LAD palpable in pelvic region; no additional abnormalities (Pelvic exam was completed in room with curtain closed, both Dr. Shanna Melendez and Bessie Patel PA-C present throughout entire exam). MSK: No deformities; pulses palpable and equal; no edema. Neuro: Awake, alert; Sensation intact bilaterally; CN grossly intact Psych: Appropriate mood and affect; good judgement and insight. Mother is present in room at time of visit. She steps to other side of curtain d uring pelvic exam. Results & Data Results & Data Vital Signs (Past 12 Hours) Vital Signs Temp Pulse Pulse Resp BP BP Pulse Ox 04/18/25 04:06 110 H 17 111/88 99 04/18/25 04:00 115 H 16 111/88 100 04/18/25 03:56 112 H 04/18/25 03:18 126 H 20 99 04/18/25 03:00 37.3 C 04/18/25 02:12 119 H 12 98 04/18/25 02:00 120 H 17 125/87 99 04/18/25 01:58 121 H 14 125/87 98 04/18/25 01:21 131 H 13 100 04/18/25 00:06 135 H 20 122/85 99 04/18/25 00:04 145 H 04/17/25 23:47 38.5 C H 142 H 20 137/76 99 O2 Del Method 04/18/25 04:06 Room Air 04/18/25 04:00 Room Air 04/18/25 03:56 04/18/25 03:18 Room Air 04/18/25 03:00 04/18/25 02:12 Room Air 04/18/25 02:00 Room Air 04/18/25 01:58 Room Air 04/18/25 01:21 Room Air 04/18/25 00:06 Room Air 04/18/25 00:04 04/17/25 23:47 Room Air Laboratory Results 04/18/25 01:35 Urine Culture - Pending Urine,Clean Catch 04/18/25 04/18/25 04/18/25 03:08 01:48 01:35 WBC RBC Hgb Hct MCV MCH MCHC RDW Std Deviation RDW Coeff of James Plt Count MPV Neutrophils % (Manual) Lymphocytes % (Manual) Reactive Lymphs % (Man) Monocytes % (Manual) Neutrophils # (Manual) Total Absolute Neuts Lymphocytes # (Manual) Reactive Lymphs # Total Abs Lymphocytes Monocytes # (Manual) RBC Morphology Sodium Potassium Chloride Carbon Dioxide Anion Gap BUN Creatinine Est Cr Clr Drug Dosing eGFR BUN/Creatinine Ratio Glucose Lactate 1.3 Calcium Total Bilirubin AST ALT Alkaline Phosphatase Total Protein Albumin Globulin Albumin/Globulin Ratio Lipase Procalcitonin Urine Color Yellow Urine Appearance Cloudy A Urine pH 6.0 Ur Specific [place] 1.011 Urine Protein 3+ H Urine Glucose (UA) Negative Urine Ketones Negative Urine Blood 2+ H Urine Nitrite Negative Urine Bilirubin Negative Urine Urobilinogen Negative Ur Leukocyte Esterase 3+ H Urine WBC (Auto) >50 H Urine RBC (Auto) 3-5 H U Hyaline Cast (Auto) 0-2 U Epithel Cells (Auto) 6-10 H Urine Bacteria (Auto) 3+ H Urine Test Negative Urine Comment Adenovirus (PCR) Not Detected B. pertussis DNA (PCR) Not Detected B.parapertussis DNA PCR Not Detected C. pneumoniae DNA (PCR) Not Detected Coronavirus OC43 (PCR) Not Detected Coronavirus HKU1 (PCR) Not Detected Coronavirus 229E (PCR) Not Detected SARS-CoV-2 (PCR) Not Detected Coronavirus NL63 (PCR) Not Detected HIV 1&2 Ab/P24 Ag 4thGn Negative Human Metapneumovir PCR Not Detected Influenza Type A (PCR) Not Detected Influenza Type B (PCR) Not Detected M. pneumoniae (PCR) Not Detected Parainfluenza 1 (PCR) Not Detected Parainfluenza 2 (PCR) Not Detected Parainfluenza 3 (PCR) Not Detected Parainfluenza 4 (PCR) Not Detected RSV (PCR) Not Detected Entero/Rhino (PCR) Not Detected 04/18/25 00:45 WBC 3.52 L RBC 4.25 Hgb 11.7 L Hct 35.8 L MCV 84.2 MCH 27.5 MCHC 32.7 RDW Std Deviation 40.4 RDW Coeff of James 13.2 Plt Count 176 MPV 10.3 Neutrophils % (Manual) 29 Lymphocytes % (Manual) 50 Reactive Lymphs % (Man) 17 Monocytes % (Manual) 4 Neutrophils # (Manual) 1.02 L Total Absolute Neuts 1.02 L Lymphocytes # (Manual) 1.76 Reactive Lymphs # 0.60 Total Abs Lymphocytes 2.36 Monocytes # (Manual) 0.14 RBC Morphology Unremarkable Sodium 135 L Potassium 3.2 L Chloride 103 Carbon Dioxide 23 Anion Gap 9 BUN 12 Creatinine 0.75 Est Cr Clr Drug Dosing 124.0 eGFR 116.09 BUN/Creatinine Ratio 16.0 Glucose 85 Lactate Calcium 9.2 Total Bilirubin 0.6 AST 24 ALT 13 Alkaline Phosphatase 101 Total Protein 8.1 Albumin 4.6 Globulin 3.5 Albumin/Globulin Ratio 1.3 Lipase 14 Procalcitonin 0.11 Urine Color Urine Appearance Urine pH Ur Specific [place] Urine Protein Urine Glucose (UA) Urine Ketones Urine Blood Urine Nitrite Urine Bilirubin Urine Urobilinogen Ur Leukocyte Esterase Urine WBC (Auto) Urine RBC (Auto) U Hyaline Cast (Auto) U Epithel Cells (Auto) Urine Bacteria (Auto) Urine Test Urine Comment Adenovirus (PCR) B. pertussis DNA (PCR) B.parapertussis DNA PCR C. pneumoniae DNA (PCR) Coronavirus OC43 (PCR) Coronavirus HKU1 (PCR) Coronavirus 229E (PCR) SARS-CoV-2 (PCR) Coronavirus NL63 (PCR) HIV 1&2 Ab/P24 Ag 4thGn Human Metapneumovir PCR Influenza Type A (PCR) Influenza Type B (PCR) M. pneumoniae (PCR) Parainfluenza 1 (PCR) Parainfluenza 2 (PCR) Parainfluenza 3 (PCR) Parainfluenza 4 (PCR) RSV (PCR) Entero/Rhino (PCR) Diagnostic Findings Chest X-Ray 04/18/25 00:45 EXAM: XR chest 1V portable CLINICAL HISTORY: Fever TECHNIQUE: A radiograph of the chest was acquired. COMPARISON: None. FINDINGS: The lungs are clear and well expanded, with no pulmonary infiltrate or pleural effusion. The cardiomediastinal silhouette is within normal limits. No acute osseous abnormality is present. IMPRESSION: 1. No acute cardiopulmonary disease. Electronically signed by Christiano Pate 04-18-2025 02:12 AM Abdomen/Pelvis CT 04/18/25 02:52 EXAM: CT abd pelvis IV con only CLINICAL HISTORY: pelvic pain, perineum pain/lesion TECHNIQUE: Contiguous axial images were obtained from the level of the diaphragm to the pubic symphysis with intravenous contrast. Coronal and sagittal reconstructions were also performed, as indicated, to increase the sensitivity for detecting clinically relevant pathology. If IV contrast material had not been administered, the likelihood of detecting abnormalities relevant to the patient's condition would have been substantially decreased. The CT scan was performed according to ALARA (as low as reasonably achievable) principles. COMPARISON: None. FINDINGS: The visualized lung bases are clear. The liver is enlarged in size and demonstrates reduced attenuation. No focal liver lesions are seen. There is no intrahepatic or extrahepatic biliary ductal dilatation. The hepatic vasculature is patent. The gallbladder is present. The spleen is enlarged, measuring about 16 cm. The pancreas and adrenal glands are unremarkable. The kidneys are normal in size and attenuation. There is no hydronephrosis or perinephric fat stranding. No renal calculi or renal masses are identified. The ureters are normal in caliber and no ureteral calculi are seen. The bladder is normal in contour. Pelvic viscera are unremarkable. An IUCD is seen in situ. No focal or diffuse bowel wall thickening or evidence of bowel obstruction is identified. No imaging evidence of appendicitis. The abdominal and pelvic vasculature is patent. Enlarged lymph nodes seen in bilateral inguinal region. No fluid collections are seen. No aggressive appearing osseous lesions are identified. IMPRESSION: Hepatomegaly with hepatic steatosis. Splenomegaly. No acute intra-abdominal abnormality is seen. Enlarged lymph nodes seen in bilateral inguinal region. No abnormality is seen in the perineum. Electronically signed by Christiano Pate 04-18-2025 04:13 AM Medications Administered 2.25 L NSS Ketorolac 30mg IV Valacyclovir 1g po Ceftriaxone 2g IV Acetaminophen 1g IV Code Status & VTE Plan Code Status Full Supervising Physician Co-Signing Physician Notes Patient seen and examined, chart reviewed, case discussed with KHOA Patel and I agree with the assessment and plan as above. Patient with worsening painful lesions on her labia and perineum. She sustained small vaginal tears following sex - has been using witch rj on it and dermabond Leukopenia, anemia CT abdomen and pelvis with hepatomegaly and splenomegaly Markedly tachycardic in the ER with HR 160's after ambulating to the bathroom - sinus on monitor and confirmed on telemetry On exam patient is tachycardic, regular slightly dry mucus membranes, ulcer on left side of tongue Lungs CTA Abd soft, mildly tender with no rebound/guarding Tender inguinal LAD Lesions present on labia and perineum appear cratered but no blisters, tender to touch - not completely consistent with a herpes infection Assessment/Plan - consider viral infection such as CMV, EBV or Coxsackie virus contributing to her lesions as well as hepatosplenomegaly and abnormalities in CBC? -HSV culture sent -Empiric Valtrex -Continue IVF -Tylenol PRN -Remainder as above PG Care Time/CCT Total # of Minutes Spent Total Time Spent with Patient: Total time spent is greater than 50% in coordination of care (as documented) at patient's floor/unit and/or counseling patient: Coding Level of Care Code 54966 INT INP/OBS CARE 3/75MIN Diagnoses Sepsis A41.9 Hepatomegaly R16.0 Hyponatremia E87.1 Hypokalemia E87.6 Anemia D64.9
[2025-04-18] MEDS: POTASSIUM CHLORIDE 20 MEQ/15 ML UDC PO STA (06:09)
[2025-04-18] MEDS: ACETAMINOPHEN 500 MG TAB PO PRN (06:12)
[2025-04-18] MEDS: LACTATED RINGER'S 1,000 ML IV SCH (06:15)
[2025-04-18] MEDS ORDERED: POLYETHYLENE (MIRALAX) 17 GM PACK PO PRN (06:37)
[2025-04-18] MEDS ORDERED: ONDANSETRON INJ 2 MG/ML 2 ML VIAL IV PRN (06:37)
[2025-04-18 06:47] LABS: Magnesium 2.0 mg/dl (1.7-2.4)
[2025-04-18] MEDS: metroNIDAZOLE 500 MG/100 ML BAG IV STA (06:52)
[2025-04-18] MEDS ORDERED: MELATONIN 3 MG TAB PO PRN (06:57)
[2025-04-18] MEDS: cefTRIAXone SODIUM 2,000 MG/50 ML BAG IV SCH (07:03)
[2025-04-18 07:43] LABS: Reticulocytes # 0.040 10^6/uL (0.020-0.100)
[2025-04-18] MEDS: DOXYCYCLINE HYCLATE 100 MG in DEXTROSE 5% MINI-B 100 ML IV STA (07:52)
[2025-04-18 08:02] LABS: Iron < 10 mcg/dl (35-150); Transferrin 222 mg/dl (200-360)
[2025-04-18 08:17] LABS: Thyroid Stimulating Hormone 1.346 uIu/ml (0.300-4.500)
[2025-04-18 10:48] LABS: Candida glabrata RNA Negative (Negative); Candida species group RNA POSITIVE (Negative)
[2025-04-18] MEDS: AZITHROMYCIN 500 MG/255 ML BAG IV ONE (11:11)
[2025-04-18 11:25] LABS: Chlam trach RNA(Genit,Ureth,Ur Not Detected (NotDetected); GC(Neis gon)RNA(Genit,Ureth,Ur Not Detected (NotDetected)
[2025-04-18 11:33] LABS: Bacterial Vaginosis RNA POSITIVE (Negative)
[2025-04-18 12:00] LABS: Mycoplasma Genitalium RNA Negative (Negative)
--- NOTE | 2025-04-18 12:11 | Hospitalist Progress Note ---
"Date of Service April 18, 2025 Assessment & Plan (1) Sepsis: (2) Hepatomegaly: (3) Hyponatremia: (4) Hypokalemia: (5) Anemia: Plan 20-year-old female PMHx AUB who presents for concerns of worsening wound on labia. Evaluation concerning for persistent tachycardia in setting of following laboratory findings: leukopenia (3.52), H/H 11.7/35.8, Na 135, K 3.2. CTAP reveals hepatomegaly and splenomegaly, no additional findings. She did have a fever and present to the ED tachycardic, therefore meeting SIRS criteria. Admission for sepsis, 2/2 gynecological infection, with persistent tachycardia and minimal electrolyte abnormalities. #Sepsis|?HSV|STI-With tachycardia persisting, febrile and resolution of fever with Tylenol dosing. -CBC leukopenia 3.52; lactate/procal WNL -UA possible contamination, cx pending. -BioFire negative -HSV cx pending, cont valacyclovir for now -Vaginal swab: +BV, +Margareth -IVF LR @ 80 mL/hr -Zofran prn N/V -Acetaminophen prn fever/pain, alternate with ketorolac if severe pain -Zithromax 500mg IV -Ceftriaxone IV-continue -Diflucan 150mg po once -Metronidazole 500mg po BID -CBC am -Consider gyne consult in am, pending clinical improvement #Hepatomegaly-CTAP hepatomegaly with hepatic steatosis, splenomegaly, no acute intra-abdominal abnormality, enlarged lymph nodes in bilateral inguinal region, no abnormality in perineum. -CBC with slight anemia; LFTs WNL -Monospot neg although clinical presentation suspicious for EBV -LFTS in am #Hyponatremia|#Hypokalemia -K 3.2, Na 135 -LR at 75ml/hr -Received KCL 20MEQ po -BMP am #Anemia--no active bleeding, reported hx of AUB and nosebleeds -H/H 11.7/35.8 on admission -haptoglobin pending -Fe <10 -Ferritin in am to evaluate for Fe supplementation -no active bleeding -CBC am Dispo: Obs, med/tele - persistent tachycardia VTE Prophylaxis: SCDs Admission and Anticipated Discharge Date Admission Date: April 18, 2025 Subjective Patient lying in bed with mother at bedside this am while evaluated in emergency department. Reports she is sleepy as she did not have sleep much last night. Has been drinking Gatorade. Tolerating oral fluids without emesis. Requesting to void. Was febrile this am with documented temperature of 38.4 with subsequent Tylenol dosing. Endorses symptoms correlating with admitting chief complaint including pharyngeal pain that started 2 days ago in conjunction with small tears/wounds to her vaginal area that started three days prior to her arrival. +fever. She attributes her vaginal tears being related to sexual intercourse and was using Witch Nargis and Dermoplast for relief of discomfort. +small amount of yellowish discharge from vaginal area that is without odor-cannot confirm if this drainage is coming from her vagina vs. drainage from vaginal tears as she placed Witch Nargis on areas and they were slightly oozing. She has an IUD and does not menstruate. Currently sexually active in monogamous relationship with her boyfriend who had recent negative STI testing. She denies abdominal pain, dyspareunia, lumps in vaginal opening, nausea, vomiting, diarrhea or chills. Physical Exam Physical Exam: GENERAL APPEARANCE: A&O. Lying comfortably in stretcher. NAD. SKIN: Normal color without rashes or lesions. Normal turgor. HEENT: Head AT/NC. Buccal mucosa is moist and pink. NECK: No jugular venous distention. No thyroid enlargement. Bilateral posterior cervical lymphadenopathy. HEART: RRR without m/g/r. LUNGS: Normal inspiratory effort. CTA without w/r/r. ABDOMEN: No guarding or rigidity. Normoactive BS in all four quadrants. Abdomen soft and NT. : Examination completed with escort and presence of Marla Franco RN. External genitalia/labia without erythema or streaking. 2 small ulcerated lesions to lower portion of vaginal introitus. No discharge noted from lesions. Labia minora without redness or abscess. Palpation of vaginal introitus without swelling or firmness/abscess. One fingertip inserted into bilateral vaginal introitus near area of Bartholin's glands without tenderness, firmness or abscess. MSK: No bony gross/deformities throughout. ROM intact. EXTREMITIES: No edema, No peripheral cyanosis. Neuro: CN 2-12 grossly intact. No focal neuro deficits. Results & Data Results & Data Vital Signs (Past 12 Hours) Vital Signs Temp Pulse Pulse Resp BP BP Pulse Ox 04/18/25 10:06 37.1 C 04/18/25 08:00 104 H 21 96 04/18/25 07:39 116 H 24 96 04/18/25 07:15 126 H 24 97 04/18/25 07:00 99/50 L 04/18/25 06:54 38.4 C H 04/18/25 06:10 39.6 C H 04/18/25 06:00 132 H 15 109/63 98 04/18/25 05:00 115 H 16 127/86 99 04/18/25 04:06 110 H 17 111/88 99 04/18/25 04:00 115 H 16 111/88 100 04/18/25 03:56 112 H 04/18/25 03:18 126 H 20 99 04/18/25 03:00 37.3 C 04/18/25 02:12 119 H 12 98 04/18/25 02:00 120 H 17 125/87 99 04/18/25 01:58 121 H 14 125/87 98 04/18/25 01:21 131 H 13 100 O2 Del Method 04/18/25 10:06 04/18/25 08:00 Room Air 04/18/25 07:39 Room Air 04/18/25 07:15 Room Air 04/18/25 07:00 04/18/25 06:54 04/18/25 06:10 04/18/25 06:00 Room Air 04/18/25 05:00 Room Air 04/18/25 04:06 Room Air 04/18/25 04:00 Room Air 04/18/25 03:56 04/18/25 03:18 Room Air 04/18/25 03:00 04/18/25 02:12 Room Air 04/18/25 02:00 Room Air 04/18/25 01:58 Room Air 04/18/25 01:21 Room Air PG Care Time/CCT Total # of Minutes Spent Total Time Spent with Patient: Total time spent is greater than 50% in coordination of care (as documented) at patient's floor/unit and/or counseling patient: Coding Level of Care Code 67239 SUB INP/OBS CARE 3/50MIN Diagnoses Sepsis A41.9 Hepatomegaly R16.0 Hyponatremia E87.1 Hypokalemia E87.6 Anemia D64.9"
--- NOTE | 2025-04-18 12:35 | Hospitalist Progress Note ---
Date of Service April 18, 2025 Assessment & Plan (1) Sepsis: (2) Hepatomegaly: (3) Hyponatremia: (4) Hypokalemia: (5) Anemia: Plan 20-year-old female PMHx AUB who presents for concerns of worsening wound on labia. Evaluation concerning for persistent tachycardia in setting of following laboratory findings: leukopenia (3.52), H/H 11.7/35.8, Na 135, K 3.2. CTAP reveals hepatomegaly and splenomegaly, no additional findings. Upon presentation in the ED she was found to be tachycardic and febrile meeting SIRS criteria. Admission for sepsis and possible gynecological infection. #Sepsis/Questionable HSV/STI Suspected vaginal infection, with tachycardia persisting but fever resolved after administration of acetaminophen. Rash had developed following initial wound, concerns for herpes. Did also admit to "flu-like symptoms" ~ 1 month [employer]ICATION [employer], so far negative infectious workup otherwise (negative BioFire, CXR). -CBC leukopenia 3.52; lactate and procal WNL - CBC am -UA with possible contamination, pending culture -BioFire negative - Vaginal swab: +delores, +BV, HSV pending -IVF LR @ 80ml/hr -Zofran prn N/V -Acetaminophen prn fever/pain, alternate with ketorolac if severe pain -Cont Vacalovir -Zithromax 500mg IV now -Ceftriaxone IV - continue -Consider gyne consult, pending clinical improvement/course #Hepatomegaly-CTAP with As identified on CTAP, without abdominal pain. - CBC with slight anemia; LFTs WNL - LFTs am - Monospot negative #Hyponatremia Mild, without glucose abnormalities. - Na 135 - BMP am - IVF as above #Hypokalemia Without acute symptoms. - K 3.2, pending Mg - BMP am - EKG pending - KCl 20 mEq po #Anemia Reported history of AUB, nosebleeds. No current known bleeding, to include vaginal bleeding. Beginning of the year with "blood in stool", cannot attest to any recently, - H/H 11.7/35.8 on admission - Pending iron panel, ferritin, vitamin B12, folate, haptoglobin, LDH, reticulocytes - CTAP hepatosplenomegaly - Trend CBC Dispo: Obs, med/tele - persistent tachycardia VTE Prophylaxis: SCDs This document was dictated utilizing [employer]. Please excuse any grammatical errors that may be secondary to use of this software. Admission and Anticipated Discharge Date Admission Date: April 18, 2025 Subjective Patient lying in bed with mother at bedside this am while evaluated in emergency department. Reports she is sleepy as she did not have sleep much last night. Has been drinking Gatorade. Tolerating oral fluids without emesis. Requesting to void. Was febrile this am with documented temperature of 38.4 with subsequent Tylenol dosing. Endorses symptoms correlating with admitting chief complaint including pharyngeal pain that started 2 days ago in conjunction with small tears/wounds to her vaginal area that started three days prior to her arrival. +fever. She attributes her vaginal tears being related to sexual intercourse and was using Witch Nargis and Dermoplast for relief of discomfort. +small amount of yellowish discharge from vaginal area that is without odor-cannot confirm if this drainage is coming from her vagina vs. drainage from vaginal tears as she placed Witch Nargis on areas and they were slightly oozing. She has an IUD and does not menstruate. Currently sexually active in monogamous relationship with her boyfriend who had recent negative STI testing. She denies abdominal pain, dyspareunia, lumps in vaginal opening, nausea, vomiting, diarrhea or chills. Review of Systems Review of Systems: All systems reviewed & are unremarkable except as noted in Subjective Physical Exam Physical Exam: GENERAL APPEARANCE: A&O. Lying comfortably in stretcher. NAD. SKIN: Normal color without rashes or lesions. Normal turgor. HEENT: Head AT/NC. Buccal mucosa is moist and pink. NECK: No jugular venous distention. No thyroid enlargement. Bilateral posterior cervical lymphadenopathy. HEART: RRR without m/g/r. LUNGS: Normal inspiratory effort. CTA without w/r/r. ABDOMEN: No guarding or rigidity. Normoactive BS in all four quadrants. Abdomen soft and NT. : Examination completed with escort and presence of Marla Franco RN. External genitalia/labia without erythema or streaking. 2 small ulcerated lesions to lower portion of vaginal introitus. No discharge noted from lesions. Labia minora without redness or abscess. Palpation of vaginal introitus without swelling or firmness/abscess. One fingertip inserted into bilateral vaginal introitus near area of Bartholin's glands without tenderness, firmness or abscess. MSK: No bony gross/deformities throughout. ROM intact. EXTREMITIES: No edema, No peripheral cyanosis. Neuro: CN 2-12 grossly intact. No focal neuro deficits Results & Data Results & Data Vital Signs (Past 12 Hours) Vital Signs Temp Pulse Pulse Resp BP BP Pulse Ox 04/18/25 10:06 37.1 C 04/18/25 08:00 104 H 21 96 04/18/25 07:39 116 H 24 96 04/18/25 07:15 126 H 24 97 04/18/25 07:00 99/50 L 04/18/25 06:54 38.4 C H 04/18/25 06:10 39.6 C H 04/18/25 06:00 132 H 15 109/63 98 04/18/25 05:00 115 H 16 127/86 99 04/18/25 04:06 110 H 17 111/88 99 04/18/25 04:00 115 H 16 111/88 100 04/18/25 03:56 112 H 04/18/25 03:18 126 H 20 99 04/18/25 03:00 37.3 C 04/18/25 02:12 119 H 12 98 04/18/25 02:00 120 H 17 125/87 99 04/18/25 01:58 121 H 14 125/87 98 04/18/25 01:21 131 H 13 100 O2 Del Method 04/18/25 10:06 04/18/25 08:00 Room Air 04/18/25 07:39 Room Air 04/18/25 07:15 Room Air 04/18/25 07:00 04/18/25 06:54 04/18/25 06:10 04/18/25 06:00 Room Air 04/18/25 05:00 Room Air 04/18/25 04:06 Room Air 04/18/25 04:00 Room Air 04/18/25 03:56 04/18/25 03:18 Room Air 04/18/25 03:00 04/18/25 02:12 Room Air 04/18/25 02:00 Room Air 04/18/25 01:58 Room Air 04/18/25 01:21 Room Air PG Care Time/CCT Total # of Minutes Spent Total Time Spent with Patient: Total time spent is greater than 50% in coordination of care (as documented) at patient's floor/unit and/or counseling patient: Coding Diagnoses Sepsis A41.9 Hepatomegaly R16.0 Hyponatremia E87.1 Hypokalemia E87.6 Anemia D64.9
[2025-04-18] MEDS: ACETAMINOPHEN 325 MG TAB PO PRN (15:20)
[2025-04-18] MEDS: LACTATED RINGER'S 500 ML IV ONE (16:19)
[2025-04-18] MEDS: FLUCONAZOLE 50 MG TAB PO ONE (16:50)
[2025-04-18] MEDS: metroNIDAZOLE 500 MG TAB PO SCH (20:41)
[2025-04-19 06:50] LABS: Hematocrit (blood only) 33.3 % (37.0-47.0); Hemoglobin 11.0 g/dl (12.0-16.0); Mean Corpuscular Hemoglobin 27.4 pg (25.0-34.0); Mean Corpuscular Volume 83.0 fL (80.0-100.0); Platelet Count 164 K/uL (130-400); RDW Standard Deviation 39.8 fL (36.4-46.3); Red Blood Count 4.01 M/uL (4.20-5.40); White Blood Count 3.19 K/ul (4.8-10.8)
[2025-04-19] MEDS: KETOROLAC TROMETHAMINE 15 MG/ML VIAL IV PRN (07:31)
[2025-04-19 07:38] LABS: Alanine Aminotransferase 10.0 U/L (7-52); Albumin Level 3.8 gm/dl (3.4-5.0); Alkaline Phosphatase 78.0 U/L (34-104); Anion Gap 6.0 (3-11); Bilirubin,Total 0.5 mg/dl (0.2-1.0); Blood Urea Nitrogen 7.0 mg/dl (6-23); Calcium 8.8 mg/dl (8.6-10.3); Carbon Dioxide 28.0 mmol/L (21-32); Chloride 106.0 mmol/L (98-107); Creatinine Clr Calc Pharmacy 125.7 ml/min; Ferritin 108.4 ng/ml (8-388); Glucose 80.0 mg/dl (70-99(Fasting)); Potassium 3.9 mmol/L (3.5-5.1); Sodium 140.0 mmol/L (136-145); Total Protein 7.0 gm/dl (6.0-8.3)
--- NOTE | 2025-04-19 14:28 | OB/GYN Consultation ---
Date of Consultation April 19, 2025 Assessment & Plan (1) Female genital lesion: Tara is a 20-year-old admitted for acute fevers and a vulvar rash. Findings on exam are consistent with an HSV outbreak and likely a primary HSV outbreak due to not having any known history of rash in similar location as well as the systemic infectious symptoms including fever and flulike symptoms. I discussed the likely diagnosis of a primary HSV outbreak with Tara today. I discussed the natural history of HSV including risk for transmission, frequency and duration of outbreaks and treatment modalities for future outbreaks. Answered all questions per patient satisfaction. Recommend continuing Valtrex 1 g twice daily for 7 to 10 days. Recommend continuing with metronidazole for treatment of bacterial vaginosis at 500 mg twice daily for 5 to 7 days. Continue with Diflucan 150 mg every other day for a total of 8 days of treatment to cover risk of yeast recurrence due to the metronidazole. Recommend follow-up in clinic for long-term management of HSV. Greater than 45 minutes spent in review of history, exam and discussion today (2) HSV (herpes simplex virus) infection: (3) Vulvovaginitis: History of Present Illness Attending Physician: Mason Lambert MD History of Present Illness Tara is a 20-year-old presented to the ED with vulvar rash, fevers and flu type symptoms yesterday. She reports that she began having vulvar irritation on Thursday or Thursday of this week which progressively worsened over time and developed a rash on vulva on Thursday/Thursday. She reports that rash has continued to become more tender/painful over time and is developed small ulcerative type lesions. Workup in the ED was notable for a leukopenia with fevers treated with Tylenol. Vaginal culture was notable for a bacterial vaginosis and yeast findings which are currently being treated. HSV PCR and titers pending. Patient denies any prior similar symptoms or vulvar rashes. 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 setting Allergies Allergy/AdvReac Type Severity Reaction Status Date / Time adhesive tape Allergy Unknown Unknown Verified 04/18/25 05:33 Home Medications Medication Instructions Recorded Confirmed Type melatonin 3 mg capsule 3 mg PO HS PRN Sleep 11/20/22 04/17/25 History Patient History Medical History (Updated 04/19/25 @ 14:34 by Sergio Correa MD) Vulvovaginitis HSV (herpes simplex virus) infection Panic attacks Acid reflux Weight gain Tinea versicolor Tear of medial meniscus of left knee Lactose intolerance Anxiety Acne vulgaris Panic attacks SITUATION INDUCED GERD (gastroesophageal reflux disease) Torn meniscus LEFT Surgical History History of tonsillectomy Family History Grandmother Family history of diabetes mellitus Social History Smoking Status: Never smoker Second Hand Exposure: No; Do You Dip or Chew Tobacco: No; Tobacco Cessation Education Requested by Patient: No Hx Alcohol Use: No Hx Substance Use: No Preferred Language: Filipino Communication Ability: Effective 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 Beliefs That Will Affect Care: None Current Living Situation: Parent Other Information That Helps Us Care for You: No Feels Safe at Home: Yes Safety Concerns: Feels Safe At This Time Assistive Devices: None Physical Exam Genitourinary: + external lesion, + external tenderness and + external erythema Vulvar erythema and rash with small ulcerative lesions consistent with HSV Results & Data Vital Signs (Past 12 Hours) Vital Signs Temp Pulse Pulse Resp BP Pulse Ox O2 Del Method 04/19/25 11:10 36.9 C 110 H 20 103/73 97 Room Air 04/19/25 08:02 36.8 C 111 H 16 109/73 98 Room Air 04/19/25 07:30 99 H 04/19/25 02:24 37.2 C 99 H 16 111/73 99 Room Air PG Care Time/CCT Total # of Minutes Spent Total Time Spent with Patient: Total time spent is greater than 50% in coordination of care (as documented) at patient's floor/unit and/or counseling patient: Coding Level of Care Code 37442 IN/OBS CONSULT LVL 3,45M Diagnoses Female genital lesion N94.9 HSV (herpes simplex virus) infection B00.9 Vulvovaginitis N76.0
--- NOTE | 2025-04-19 16:09 | Discharge Summary ---
Discharge Summary Date of Service April 19, 2025 Principal Dx & Hospital Course #1 = Principal Diagnosis (1) Sepsis: (2) Hepatomegaly: (3) Hyponatremia: (4) Hypokalemia: (5) Anemia: Plan 20-year-old female PMHx AUB who presents for concerns of worsening wound on labia. Evaluation concerning for persistent tachycardia in setting of following laboratory findings: leukopenia (3.52), H/H 11.7/35.8, Na 135, K 3.2. CTAP reveals hepatomegaly and splenomegaly, no additional findings. She did have a fever and present to the ED tachycardic, therefore meeting SIRS criteria. Admission for sepsis, 2/2 gynecological infection, with persistent tachycardia and minimal electrolyte abnormalities. She is feeling much improved and has been without fever since 04/18/25 at 1500. She reports some discomfort to labial lesions primarily when urinating. She has been eating and drinking normally with no N/V. Her tachycardia as essentially resolved and her HR on telemetry has been in the 90s overnight with trends today at low 100s with underlying rhythm of sinus tachycardia. #Sepsis|?HSV|STI|questionable UTI- She has been without fever since 04/18/25 at 1500. Gyne consulted with recommendations to continue valacyclovir in setting of clinical presentation of HSV, continuation of Metronidazole for BV, Diflucan for yeast suppression while on Metronidazole. -CBC leukopenia 3.52, 3.19; lactate/procal WNL -UA possible contamination, cx still pending with pinpoint growth -BioFire negative -HSV cx still pending at time of d/c -Vaginal swab: +BV, +Margareth -prescriptions for Metronidazole, Diflucan, Keflex and Valacyclovir #Hepatomegaly-CTAP hepatomegaly with hepatic steatosis, splenomegaly, no acute intra-abdominal abnormality, enlarged lymph nodes in bilateral inguinal region, no abnormality in perineum. -CBC with slight anemia -Monospot neg although clinical presentation suspicious for EBV -LFTS normal -instructed to avoid contact sports for 4 weeks -f/u with PCP within one week of d/c #Hyponatremia|#Hypokalemia -resolved -K 3.9, Na 140 #Anemia--no active bleeding, reported hx of AUB and nosebleeds -H/H 11.7/35.8 on admission, H/H stable at d/c with no active bleeding -haptoglobin pending -Fe <10 -Ferritin normal, transferrin normal -CBC trends normal -f/u with PCP for repeat testing if needed Dispo: d/c home Follow up with PCP in one week. Follow up with gynecology in 3-4 weeks. Admission HPI Per Admitting Provider 20-year-old female PMHx AUB who presents for concerns of worsening wound in perineal area. Reports that she noticed a wound between her vagina and anus 3 days [employer], which developed after sexual intercourse. She states that the area had become irritated and painful, so 2 days [employer] she started to put witch rj on the area but this did not provide any relief. She had developed a fever of 102 degrees Fahrenheit 2 days [employer], and has had the chills since. She does have a ring that tracks her temperature and she states the most current reading being 103 degrees Fahrenheit. She is having some vaginal discharge but she is unclear if this is coming from the wounded area or vagina itself. She explains that the wound started as almost an ulceration type lesion, then worsening with the additional of Witch Rj. Some numbing sensation at the area, she believes secondary to the witch rj. No bladder incontinence. She has been utilizing Tylenol for her pain and fever, which has provided minimal relief. She admits to LUTS, specifically dysuria. Also reports prior exposure to rhinovirus ~ 1 month [employer], in which she had developed generalized URI symptoms and fever at that time. 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 She recalls a prior rash developing on her hip following a tattoo in the past, but aside from this no known shingles. Denies cold sores. She denies active bleeding, reports no menses as she has an IUD, and the most recent episode of bleeding she recalls was "the beginning of the year" where she had some blood in her stool but has not since that time. She is tachycardic which is abnormal for her, also reports a "hiccuping/catching breath" sensation that was prominent the night [employer] but no chest pain, SOB, or palpitations. Denies abdominal pain. No known history of mono. She was fully vaccinated with childhood vaccines. One sexual partner who she states "has tested negative for anything." Denies N/V/D/C, numbness/tingling elsewhere, weakness, current URI symptoms, weakness, syncope, or falls. ED evaluation reveals CBC with leukopenia at 3.52, H/H 11.7/35.8; CMP Na 135, K 3.2; lactate 1.3; procal 0.11; UA with LE/WBC/epith cells/bacteria; negative; vaginal swab pending; BioFire negative; CXR no acute findings; CTAP hepatomegaly with steatosis, splenomegaly, no acute findings, enlarged lymph nodes in bilateral inguinal region, no abnormalities in perineum; EKG [].; Provided with 2.25L NSS, ketorolac 30mg IV, valacyclovir 1g po, ceftriaxone 2g IV, and acetaminophen 1g IV in ED. Please see Dr. Melendez's attestation for adjustments/additions to treatment plan. Discharge Exam GENERAL APPEARANCE: A&O. Sitting comfortably in bed. NAD. SKIN: Normal color without rashes or lesions. Normal turgor. HEENT: Head AT/NC. Buccal mucosa is moist and pink. NECK: Posterior cervical lymphadenopathy present. HEART: RRR without m/g/r. LUNGS: Normal inspiratory effort. CTA without w/r/r ABDOMEN: No guarding or rigidity. Normoactive BS in all four quadrants. Abdomen soft and NT. Genitalia: + multiple scattered external lesions to labia majora. MSK: No bony gross/deformities throughout. ROM intact. Discharge Plan Discharge Items Patient Disposition: Home - Self-Care Reason For Visit: SEPSIS Discharge Diagnosis: Possible UTI, possible mononucleosis, viral illness, herpes simplex virus, bacterial vaginosis, vaginal yeast infection Condition on Discharge: Good Activity: As commented below Bathing: No limitations Sexual Activity: Wait until after follow-up appointment Exercise/Sports: None Exercise Comment: refrain from contact activites for 4 weeks Driving/Machine Use: No limitations Weightbearing: Full weightbearing Non-emergency contact: Primary Care Provider Call non-emergency contact if: you have any medication questions, your symptoms worsen and your temperature is above 101 Follow-up/Referrals: Lori Ramirez PA-C [Primary Care Provider] - (Please call office to schedule follow up within one week) Sergio Correa MD [Physician] - (Please call scheduling at [phone] to schedule hospital follow up in 3-4 weeks.) Diet: Regular Addtl Attending Provider Instructions: Ms. Mason, You were hospitalized for a suspected viral illness in conjunction with a virus affecting your vaginal area. It was also discovered you have a vaginal infection requiring an antibiotic and an anti-fungal infection. It is also possible you have a UTI although your final culture report is not available. Please follow up with your family doctor within one week of discharge and gynecology in 3-4 weeks for monitoring. Please do not engage in any contact sports or contact physical activity for a total of 4 weeks. Medications: Your medication list has been reviewed and reconciled upon discharge to ensure accuracy and continuity of care. An updated list of all your medications is included with your hospital discharge paperwork. Please review this list closely, and make note of any changes. We sent new several new medications to your pharmacy. -The first medication is called Metronidazole. Take Metronidazole 500 two times a day for the next 6 days. Start this this evening. This is an antibiotic to help vaginal infections. -The second medication is called Valtrex. Take Valtrex 1000mg two times a day for the next 8 days. This is an anti-viral medication to treat possible herpes simplex virus. You can take this medication this evening. -The third medication is called Diflucan. Take Diflucan 150mg every other day for 4 tablets to prevent a reoccurrence of yeast. You can start this medication this evening. -The fourth medication is called Keflex. Tale Keflex 500mg two times daily for 3 days. You can start this medication tomorrow morning. This is an antibiotic to treat urinary tract infections as your urine culture results are still not returned. Take your medications as instructed; do not skip a dose of your medicines. Make sure all of your doctors know every medicine you are taking (including wyok-hps-htysvie medicines, vitamins, and supplements). Call your primary care provider before taking any new medicines (including over- the-counter medicines, vitamins, and supplements), because some of these may interact with your current medications, or may make your symptoms worse. Tell your primary care provider if you cannot afford your medications. Activity: You can do normal everyday activities as your body allows. Take rest breaks if you feel tired. Do not overexert. Stop activity if you have pain, shortness of breath or feel dizzy. Please remember to not engage in contact sports or close contact for 4 weeks. Follow-up appointments: Make an appointment with your primary care physician within one week of discharge. A copy of this summary will be sent to them. Every time you see your primary care physician, or any other doctor, bring your medication list, and a list of questions. CONTACT YOUR PRIMARY CARE PROVIDER if you experience any of the following: Shortness of breath or difficulty breathing Fevers or chills Feeling tired with normal activity or experiencing dizziness or fainting Difficulty following your treatment plan, or difficulty taking medications CALL 911 OR GO TO THE EMERGENCY DEPARTMENT if you experience any of the following: Severe abdominal pain or nausea/vomiting Severe chest pain, or chest pain that radiates (moves) to your jaw or arm Sudden, severe shortness of breath or difficulty breathing Thank you for allowing us to participate in your care. Pending Studies at Discharge: Yes Studies:: final urine culture, final blood culture, final HSV test Stand-Alone Forms: My [facility] [place] [facility] [place], Smoking Cessation Medications and DC Order Prescriptions: New metronidazole 500 mg Tablet 500 mg PO BID 6 Days Qty: 12 0RF valacyclovir 500 mg Tablet 1,000 mg PO BID 8 Days Qty: 32 0RF fluconazole 150 mg tablet 150 mg PO Q48H 8 Days Qty: 4 0RF cephalexin 500 mg capsule 500 mg PO BID 3 Days Qty: 6 0RF Continued melatonin 3 mg capsule 3 mg PO HS PRN (Reason: Sleep) Discharge Orders: Discharge Order (Routine); Ordered 04/19/25 Ordered By: Juliana Morales/Other Patient Handouts: Mononucleosis (Blood), Herpes, Herpes: Caring for Sores, Herpes: Treatment with Medication, Living with Herpes Admission Data Admit Date/Time: 04/18/25 05:23 Attending Provider: Mason Lambert Admit Provider: Shanna Melendez Primary Care Provider: Lori Ramirez Other Providers: Shanna Melendez; Sergio Correa Other Interventions: Discharge Summary Assessment (RN) Last Done: 04/19/25 16:24 Hospital Stay Data Consultations 04/18/25 04:52 ED Decision to Admit Stat 04/19/25 10:08 Consult Gynecology Routine Diagnostic Imagining Performed 04/18/25 02:52 CT abd pelvis IV con only Stat Pending Results Patient Have Any Pending Studies at Discharge: Yes Discharge Instructions Given to Patient (Per Discharging Provider) Ms. Mason, You were hospitalized for a suspected viral illness in conjunction with a virus affecting your vaginal area. It was also discovered you have a vaginal infection requiring an antibiotic and an anti-fungal infection. It is also possible you have a UTI although your final culture report is not available. Please follow up with your family doctor within one week of discharge and gy necology in 3-4 weeks for monitoring. Please do not engage in any contact sports or contact physical activity for a total of 4 weeks. Medications: Your medication list has been reviewed and reconciled upon discharge to ensure accuracy and continuity of care. An updated list of all your medications is included with your hospital discharge paperwork. Please review this list closely, and make note of any changes. We sent new several new medications to your pharmacy. -The first medication is called Metronidazole. Take Metronidazole 500 two times a day for the next 6 days. Start this this evening. This is an antibiotic to help vaginal infections. -The second medication is called Valtrex. Take Valtrex 1000mg two times a day for the next 8 days. This is an anti-viral medication to treat possible herpes simplex virus. You can take this medication this evening. -The third medication is called Diflucan. Take Diflucan 150mg every other day for 4 tablets to prevent a reoccurrence of yeast. You can start this medication this evening. -The fourth medication is called Keflex. Tale Keflex 500mg two times daily for 3 days. You can start this medication tomorrow morning. This is an antibiotic to treat urinary tract infections as your urine culture results are still not returned. Take your medications as instructed; do not skip a dose of your medicines. Make sure all of your doctors know every medicine you are taking (including fszt-zll-ppbloyj medicines, vitamins, and supplements). Call your primary care provider before taking any new medicines (including over- the-counter medicines, vitamins, and supplements), because some of these may interact with your current medications, or may make your symptoms worse. Tell your primary care provider if you cannot afford your medications. Activity: You can do normal everyday activities as your body allows. Take rest breaks if you feel tired. Do not overexert. Stop activity if you have pain, shortness of breath or feel dizzy. Please remember to not engage in contact sports or close contact for 4 weeks. Follow-up appointments: Make an appointment with your primary care physician within one week of discharge. A copy of this summary will be sent to them. Every time you see your primary care physician, or any other doctor, bring your medication list, and a list of questions. CONTACT YOUR PRIMARY CARE PROVIDER if you experience any of the following: Shortness of breath or difficulty breathing Fevers or chills Feeling tired with normal activity or experiencing dizziness or fainting Difficulty following your treatment plan, or difficulty taking medications CALL 911 OR GO TO THE EMERGENCY DEPARTMENT if you experience any of the following: Severe abdominal pain or nausea/vomiting Severe chest pain, or chest pain that radiates (moves) to your jaw or arm Sudden, severe shortness of breath or difficulty breathing Thank you for allowing us to participate in your care. Total Time Total Time Spent Total Time Spent (In Minutes): 50 minutes total time spent on discharge Coding Level of Care Code 51946 INP/OBS DISCH >30 MIN Diagnoses Sepsis A41.9 Hepatomegaly R16.0 Hyponatremia E87.1 Hypokalemia E87.6 Anemia D64.9
[2025-04-19 16:26] VITALS: BP 98/64; PULSE 93; RESP 16; TEMP 98.2; O2SAT 96
--- NOTE | 2025-04-19 18:00 | Electrocardiogram Report ---
Test Reason : Blood Pressure : */* mmHG Vent. Rate : 113 BPM Atrial Rate : 113 BPM P-R Int : 128 ms QRS Dur : 84 ms QT Int : 326 ms P-R-T Axes : 66 61 57 degrees QTcB Int : 447 ms Sinus tachycardia Otherwise normal ECG No previous ECGs available Confirmed by Jayson Marley ([id number]) on 04/19/2025 5:59:57 PM Referred By: REFERRED SELF Confirmed By: Jayson Marley
== END 2025-04-19 17:01 | disposition home or self-care (01) ==
LOC: EDINP 23:36 → ED 23:36 → SUATTDRO 04-18 05:23 → 2N 04-18 06:37